=== PATIENT | female | born 1965 | race Caucasian/White ===

== ENCOUNTER 2019-10-15 06:11 | Day surgery (SDC) | payer OTHER, SELFPAY ==
[~2019-10-15] VITALS: Ht 152.4 cm; Wt 68.0 kg
[2019-10-15] MEDS ORDERED: LR 1,000 ML IV SCH (07:32)
[2019-10-15 07:44] LABS: HCG,QUAL RESULT NEGATIVE (NEGATIVE)
[2019-10-15] MEDS ORDERED: METOCLOPRAMIDE HCL 10 MG/2 ML VIAL IVP PRN (07:45)
[2019-10-15] MEDS ORDERED: ONDANSETRON HCL 4 MG/2 ML VIAL IVP PRN (07:45)
[2019-10-15] MEDS ORDERED: MEPERIDINE HCL/PF 25 MG/ML DISP.SYRIN IVP PRN (07:45)
[2019-10-15] MEDS ORDERED: HYDROmorphone 1 MG INJ. 1 MG/ML AMPUL IVP PRN (07:45)
[2019-10-15] MEDS ORDERED: CEFAZOLIN 2 GM IVPB PREMIX 50 ML IV ONE (07:46)
[2019-10-15] MEDS ORDERED: WATER FOR IRRIGATION,STERILE 1,000 ML IRRIG.SOLN IR ONE (07:46)
[2019-10-15] MEDS ORDERED: SEVOFLURANE 15 MIN GAS INH ONE (07:46)
[2019-10-15] MEDS ORDERED: BUPIVACAINE /EPINEPHRINE/PF 0.25% 30 ML VIAL INJ ONE (07:46)
[2019-10-15] MEDS ORDERED: SUCCINYLCHOLINE CHLORIDE 20 MG/ML(QUELICIN) IVP ONE (07:46)
[2019-10-15] MEDS ORDERED: ROCURONIUM BROMIDE 10 MG/ML (ZEMURON) IV ONE (07:46)
[2019-10-15] MEDS ORDERED: LR 1,000 ML IV.SOLN IV ONE (07:46)
[2019-10-15] MEDS ORDERED: NS IRRIG SOLN 1000 ML IR ONE (07:46)
[2019-10-15] MEDS ORDERED: DEXAMETHASONE SOD PHOSPHATE 4 MG/ML VIAL IVP ONE (07:46)
[2019-10-15] MEDS ORDERED: PROPOFOL 200MG/ 20ML VIAL (DIPRIVAN) IV ONE (07:46)
[2019-10-15] MEDS ORDERED: SUGAMMADEX SODIUM 200 MG/2 ML VIAL IV ONE (07:46)
[2019-10-15] MEDS ORDERED: NS 1000 ML IV.SOLN IV ONE (07:46)
[2019-10-15] MEDS ORDERED: KETOROLAC TROMETHAMINE 30 MG VIAL IVP ONE (09:15)
[2019-10-15] MEDS ORDERED: MEPERIDINE HCL/PF 25 MG/ML DISP.SYRIN ONE (09:28)
[2019-10-15] MEDS ORDERED: KETOROLAC TROMETHAMINE 30 MG VIAL ONE (09:34)
[2019-10-15 09:45] VITALS: BP_SYST 130
== END 2019-10-15 14:00 | disposition home or self-care (01) ==
LOC: SDS 06:11 → SMU 06:12 → SDS 14:00
PROVIDERS: ATTEND Obstetrics & Gynecology
DX: N83.202 Unspecified ovarian cyst, left side (principal); E11.9 Type 2 diabetes mellitus without complications; Z79.899 Other long term (current) drug therapy; Z98.890 Other specified postprocedural states; Z11.59 Encounter for screening for other viral diseases
CPT/HCPCS: 58661; 82962; 84703; 88108; 88305; C1727; C9399; J0330; J0690; J1100; J1885; J2175; J2704; J3490; J7030; J7120; U0003